=== PATIENT | male | born 2005 | race Two or more races ===

== ENCOUNTER 2023-04-03 21:56 | Inpatient (IN) | payer MEDICAID, OTHER ==
[~2023-04-03] VITALS: Ht 170.2 cm; Wt 110.3 kg
[2023-04-03 22:46] LABS: BASOPHILS % (AUTO) 0.2 % (0.0-2.0); EOSINOPHILS % (AUTO) 0.3 % (1.0-6.0); HEMATOCRIT 42.7 % (41-53); HEMOGLOBIN 14.8 g/dL (13.5-17.5); LYMPHOCYTES # (AUTO) 1.1 K/uL (1.0-4.8); LYMPHOCYTES % (AUTO) 6.1 % (22.0-44.0); MEAN CORPUSCULAR HEMOGLOBIN 29.3 pg (26.0-34.0); MEAN CORPUSCULAR HGB CONC 34.7 G/dL (31.0-37.0); MEAN CORPUSCULAR VOLUME 85 fL (80-100); MONOCYTES # (AUTO) 0.9 K/uL (0.1-1.0); MONOCYTES % (AUTO) 4.8 % (2.0-9.0); NEUTROPHILS # (AUTO) 15.7 K/uL (1.8-7.7); PLATELET COUNT (AUTO) 356 K/uL (150-450); RED BLOOD CELL COUNT(AUTO) 5.05 MIL/uL (4.50-5.90); WHITE BLOOD COUNT (AUTO) 17.7 K/uL (4.5-11.0)
[2023-04-03 22:48] LABS: NEUTROPHILS % (AUTO) 88.6 % (40.0-70.0)
[2023-04-03 22:55] LABS: ANION GAP 12 mmol/L (8-16); CALCIUM, TOTAL 9.5 mg/dL (8.8-10.5); CARBON DIOXIDE 25 mmol/L (22-29); CHLORIDE 103 mmol/L (98-107); GLOMERULAR FILTR. RATE CALC > 60 mL/min (>60); GLUCOSE,RANDOM 113 mg/dL (70-110); POTASSIUM 3.7 mmol/L (3.5-5.1); SODIUM SERUM 140 mmol/L (136-145); UREA NITROGEN, BLOOD 12 mg/dL (7-18)
[2023-04-03 23:00] LABS: ALANINE AMINOTRANSFERASE 66 U/L (12-78); ALBUMIN 4.4 g/dL (3.4-5.0); ALKALINE PHOSPHATASE 100 U/L (46-116); ASPARTATE AMINOTRANSFERASE 132 U/L (15-37); BILIRUBIN,TOTAL 0.2 mg/dL (0.1-1.0); TOTAL PROTEIN, SERUM 8.2 g/dL (6.4-8.2)
[2023-04-03 23:01] LABS: RBC MORPHOLOGY COMMENT NORMAL RBC MORPH
[2023-04-03 23:04] LABS: ALCOHOL, BLOOD (SERUM) < 3 mg/dL (0-10)
[2023-04-03 23:46] LABS: COVID AG,FIA SOURCE NASAL SWAB
[2023-04-03 23:51] LABS: SARS-COV2 (COVID) ANTIGEN,FIA Negative (Negative)
[2023-04-04 08:06] LABS: BASOPHILS % (AUTO) 0.4 % (0.0-2.0); EOSINOPHILS % (AUTO) 1.1 % (1.0-6.0); HEMATOCRIT 41.7 % (41-53); HEMOGLOBIN 14.2 g/dL (13.5-17.5); LYMPHOCYTES # (AUTO) 2.1 K/uL (1.0-4.8); LYMPHOCYTES % (AUTO) 16.3 % (22.0-44.0); MEAN CORPUSCULAR HEMOGLOBIN 29.2 pg (26.0-34.0); MEAN CORPUSCULAR HGB CONC 34.1 G/dL (31.0-37.0); MEAN CORPUSCULAR VOLUME 86 fL (80-100); MONOCYTES # (AUTO) 0.6 K/uL (0.1-1.0); MONOCYTES % (AUTO) 4.4 % (2.0-9.0); NEUTROPHILS % (AUTO) 77.8 % (40.0-70.0); PLATELET COUNT (AUTO) 331 K/uL (150-450); RED BLOOD CELL COUNT(AUTO) 4.87 MIL/uL (4.50-5.90); RED CELL DISTRIBUTION WIDTH 13.1 % (11.5-14.5); WHITE BLOOD COUNT (AUTO) 12.8 K/uL (4.5-11.0)
[2023-04-04 09:37] LABS: ALCOHOL, URINE DRUG SCREEN NEGATIVE (NEGATIVE); AMPHET/METH SCREEN,URINE NEGATIVE (NEGATIVE); BARBITURATE SCREEN, URINE NEGATIVE (NEGATIVE); BENZODIAZEPINES SCREEN,URINE NEGATIVE (NEGATIVE); CANNABINOID SCREEN,URINE NEGATIVE (NEGATIVE); COCAINE SCREEN,URINE NEGATIVE (NEGATIVE); METHADONE SCREEN, URINE NEGATIVE (NEGATIVE); OPIATE SCREEN,URINE NEGATIVE (NEGATIVE); PHENCYCLIDINE SCREEN,URINE NEGATIVE (NEGATIVE)
[2023-04-04] MEDS: LORazepam 2 MG TABLET PO PRN (13:53)
[2023-04-04 16:22] LABS: APPEARANCE,URINE TURBID (CLEAR); BILIRUBIN,URINE NEGATIVE (NEGATIVE); COLOR,URINE ORANGE (YELLOW); GLUCOSE, URINE (UA) NEGATIVE (NEGATIVE); KETONES,URINE NEGATIVE (NEGATIVE); LEUKOCYTE ESTERASE ,URINE NEGATIVE (NEGATIVE); NITRATE,URINE NEGATIVE (NEGATIVE); OCCULT BLOOD,URINE NEGATIVE (NEGATIVE); PROTEIN,URINE 30-70 mg/dL (NEGATIVE); SPECIFIC GRAVITIY, URINE 1.031 (1.003-1.030); UROBILINOGEN,URINE <=1.0 mg/dL (<=1.0)
[2023-04-05 00:55] VITALS: BP 126/76; PULSE 98; RESP 18; TEMP 97.4; O2SAT 97
[2023-04-05] MEDS ORDERED: INFLUENZA VIRUS VACCINE QVS 2023-24 (6MO+)/PF 60 MCG/0.5 ML SYRINGE IM. ONE (04:45)
[2023-04-05] MEDS ORDERED: IBUPROFEN 600 MG TABLET PO PRN (06:45)
[2023-04-05] MEDS ORDERED: ALBUTEROL SULFATE HFA 90 MCG/PUFF 8 GM INHALER IH PRN (06:45)
[2023-04-05] MEDS ORDERED: OMEPRAZOLE 20 MG CAPSULE PO PRN (06:45)
[2023-04-05] MEDS ORDERED: CloNIDine HCL 0.1 MG TABLET PO PRN (06:45)
[2023-04-05] MEDS ORDERED: MAG HYDROX/ALUMINUM HYD/SIMETH ES 30 ML SUSPENSION UDCUP PO PRN (06:45)
[2023-04-05] MEDS ORDERED: MAGNESIUM HYDROXIDE SUSPENSION 30 ML UDCUP PO PRN (06:45)
[2023-04-05] MEDS ORDERED: ACETAMINOPHEN 325 MG TABLET PO PRN (06:45)
[2023-04-05] MEDS ORDERED: DOCUSATE SODIUM 100 MG CAPSULE PO PRN (06:45)
[2023-04-05] MEDS ORDERED: BENZOCAINE/MENTHOL LOZENGE PO PRN (06:45)
[2023-04-05] MEDS ORDERED: PETROLATUM,WHITE 28 GM JELLY TP PRN (06:45)
[2023-04-05] MEDS ORDERED: BACITRACIN 28 GM OINTMENT TP PRN (06:45)
[2023-04-05] MEDS ORDERED: LOPERAMIDE HCL 2 MG CAPSULE PO PRN (06:45)
[2023-04-05] MEDS ORDERED: ONDANSETRON HCL 4 MG TABLET PO PRN (06:45)
[2023-04-05 08:19] VITALS: BP 130/69; PULSE 83; RESP 20; TEMP 97.4; O2SAT 95
[2023-04-05] MEDS: DIVALPROEX SODIUM 500 MG DR TABLET PO SCH (16:34)
[2023-04-05 20:27] VITALS: BP 140/78; PULSE 95; RESP 18; TEMP 98; O2SAT 100
[2023-04-06] MEDS: DIVALPROEX SODIUM 500 MG DR TABLET PO SCH ×2 (08:18→16:13)
[2023-04-06 08:45] VITALS: BP 124/69; PULSE 79; RESP 17; TEMP 98; O2SAT 98
[2023-04-06 08:51] LABS: BASOPHILS % (AUTO) 0.3 % (0.0-2.0); EOSINOPHILS % (AUTO) 1.7 % (1.0-6.0); HEMATOCRIT 44.8 % (41-53); HEMOGLOBIN 15.4 g/dL (13.5-17.5); LYMPHOCYTES # (AUTO) 2.7 K/uL (1.0-4.8); LYMPHOCYTES % (AUTO) 23.1 % (22.0-44.0); MEAN CORPUSCULAR HEMOGLOBIN 29.5 pg (26.0-34.0); MEAN CORPUSCULAR HGB CONC 34.4 G/dL (31.0-37.0); MEAN CORPUSCULAR VOLUME 86 fL (80-100); MONOCYTES # (AUTO) 0.5 K/uL (0.1-1.0); MONOCYTES % (AUTO) 4.3 % (2.0-9.0); NEUTROPHILS # (AUTO) 8.3 K/uL (1.8-7.7); NEUTROPHILS % (AUTO) 70.6 % (40.0-70.0); PLATELET COUNT (AUTO) 350 K/uL (150-450); RED BLOOD CELL COUNT(AUTO) 5.22 MIL/uL (4.50-5.90); RED CELL DISTRIBUTION WIDTH 13.2 % (11.5-14.5); WHITE BLOOD COUNT (AUTO) 11.8 K/uL (4.5-11.0)
[2023-04-06 09:07] LABS: ANION GAP 10 mmol/L (8-16); CARBON DIOXIDE 30 mmol/L (22-29); CHLORIDE 103 mmol/L (98-107); CREATININE 0.95 mg/dL (0.60-1.30); GLUCOSE,RANDOM 130 mg/dL (70-110); SODIUM SERUM 143 mmol/L (136-145); UREA NITROGEN, BLOOD 12 mg/dL (7-18)
[2023-04-06 09:08] LABS: ALANINE AMINOTRANSFERASE 43 U/L (12-78); ALBUMIN 4.4 g/dL (3.4-5.0); ALKALINE PHOSPHATASE 91 U/L (46-116); ASPARTATE AMINOTRANSFERASE 41 U/L (15-37); BILIRUBIN,TOTAL 0.3 mg/dL (0.1-1.0); CALCIUM, TOTAL 9.8 mg/dL (8.8-10.5); GLOMERULAR FILTR. RATE CALC > 60 mL/min (>60); PHOSPHORUS 4.5 mg/dL (2.5-4.9); TOTAL PROTEIN, SERUM 8.4 g/dL (6.4-8.2)
[2023-04-06 21:02] VITALS: BP 120/74; PULSE 93; RESP 18; TEMP 98; O2SAT 96
[2023-04-07] MEDS: ZOLPIDEM TARTRATE 10 MG TABLET PO PRN ×2 (00:06→21:56)
[2023-04-07] MEDS: LORazepam 2 MG TABLET PO PRN ×3 (00:06→12:34)
[2023-04-07] MEDS: DIVALPROEX SODIUM 500 MG DR TABLET PO SCH ×2 (08:13→16:55)
[2023-04-07] MEDS: HALOPERIDOL 5 MG TABLET PO PRN ×2 (08:13→12:34)
[2023-04-07 08:25] VITALS: BP 132/88; PULSE 89; RESP 18; TEMP 97.8; O2SAT 99
[2023-04-07 21:08] VITALS: BP 126/76; PULSE 79; RESP 17; TEMP 98.1
[2023-04-08 08:38] VITALS: BP 104/69; PULSE 80; RESP 19; TEMP 98.3; O2SAT 99
[2023-04-08] MEDS: DIVALPROEX SODIUM 500 MG DR TABLET PO SCH ×2 (09:01→16:48)
[2023-04-08 20:10] VITALS: BP 109/76; PULSE 100; RESP 18; TEMP 98.5; O2SAT 97
[2023-04-08] MEDS: ZOLPIDEM TARTRATE 10 MG TABLET PO PRN (21:10)
[2023-04-09 08:07] VITALS: BP 111/73; PULSE 90; RESP 16; TEMP 97.5; O2SAT 96
[2023-04-09] MEDS: DIVALPROEX SODIUM 500 MG DR TABLET PO SCH ×2 (08:29→16:41)
[2023-04-10 03:23] VITALS: BP 116/76; PULSE 89; RESP 18; TEMP 97.4; O2SAT 97
[2023-04-10 08:08] VITALS: BP 122/69; PULSE 82; RESP 16; TEMP 97.5; O2SAT 97
[2023-04-10] MEDS: DIVALPROEX SODIUM 500 MG DR TABLET PO SCH ×2 (08:30→16:29)
[2023-04-11 00:33] VITALS: BP 137/85; PULSE 68; RESP 17; TEMP 98.3; O2SAT 99
[2023-04-11 08:12] VITALS: BP 114/73; PULSE 94; RESP 16; TEMP 97.6; O2SAT 97
[2023-04-11] MEDS: DIVALPROEX SODIUM 500 MG DR TABLET PO SCH ×2 (08:16→16:16)
[2023-04-11 20:21] VITALS: BP 124/80; PULSE 95; RESP 17; TEMP 97.8; O2SAT 98
[2023-04-12] MEDS: DIVALPROEX SODIUM 500 MG DR TABLET PO SCH ×2 (08:15→16:13)
[2023-04-12 08:26] VITALS: BP 135/65; PULSE 92; RESP 16; TEMP 97.6; O2SAT 97
[2023-04-12 20:56] VITALS: BP 127/72; PULSE 84; RESP 18; TEMP 97.8
[2023-04-13 08:45] VITALS: BP 134/64; PULSE 97; RESP 18; TEMP 97.3; O2SAT 97
[2023-04-13] MEDS: DIVALPROEX SODIUM 500 MG DR TABLET PO SCH ×2 (08:58→16:34)
[2023-04-13 21:34] VITALS: BP 123/86; PULSE 99; RESP 18; TEMP 98.3; O2SAT 99
[2023-04-14 08:31] VITALS: BP 117/73; PULSE 103; RESP 17; TEMP 97.7; O2SAT 96
[2023-04-14] MEDS: DIVALPROEX SODIUM 500 MG DR TABLET PO SCH (09:15)
[2023-04-14] MEDS ORDERED: DIVA-112 PO (12:40)
[2023-04-14 16:11] LABS: GLUCOMETER DEV NAME(LOC) POC.BV; POC SARS-COV2 AG, FIA NEGATIVE (NEGATIVE)
== END 2023-04-14 13:55 | disposition home or self-care (01) | DRG 750 ==
LOC: EMS 21:59 → B2S 04-05 00:14
PROVIDERS: ADMIT Psychiatry & Neurology Psychiatry; ATTEND Psychiatry & Neurology Psychiatry
DX: F25.9 Schizoaffective disorder, unspecified (principal); E66.9 Obesity, unspecified; F31.9 Bipolar disorder, unspecified; F41.9 Anxiety disorder, unspecified; Z20.822 Contact with and (suspected) exposure to COVID-19; F42.9 Obsessive-compulsive disorder, unspecified; G47.00 Insomnia, unspecified; K59.00 Constipation, unspecified; Z68.38 Body mass index [BMI] 38.0-38.9, adult
CPT/HCPCS: 80053; 80307; 81003; 83735; 84100; 85025; 99285; G0480